=== PATIENT | male | born 1995 | race African-American/Black ===

== ENCOUNTER 2025-05-22 16:46 | Inpatient (IN) | payer OTHER ==
[2025-05-22 17:20] VITALS: BMI 20.5
[2025-05-22] MEDS ORDERED: NICOTINE POLACRILEX 2 MG GUM BUC PRN (18:06)
[2025-05-22] MEDS ORDERED: POLYETHYLENE GLYCOL (HEALTHYLAX) 3350 17 GM PACKET PO PRN (18:06)
[2025-05-22] MEDS ORDERED: BENZONATATE 200 MG CAPSULE PO PRN (18:06)
[2025-05-22] MEDS ORDERED: BENZOCAINE/MENTHOL (CHLORASEPTIC ) LOZENGE MM PRN (18:06)
[2025-05-22] MEDS ORDERED: LOPERAMIDE HCL 2 MG CAPSULE PO PRN (18:06)
[2025-05-22] MEDS ORDERED: NALOXONE (NARCAN) HCL 4 MG/0.1 ML SPRAY NS PRN (18:06)
[2025-05-22] MEDS ORDERED: MAG HYDROX/AL HYDROX/SIMETH 30 ML UNIT-DOSE CUP PO PRN (18:06)
[2025-05-22] MEDS ORDERED: NICOTINE POLACRILEX 2 MG LOZENGE BC PRN (18:06)
[2025-05-22] MEDS ORDERED: guaiFENesin 600 MG TABLET.ER (FP) PO PRN (18:06)
[2025-05-22] MEDS ORDERED: IBUPROFEN 600 MG TABLET (FP) PO ONE (19:36)
[2025-05-22] MEDS: IBUPROFEN 600 MG TABLET (FP) PO PRN (19:37)
[2025-05-22 21:12] LABS: URINE APPEARANCE CLEAR; URINE BILIRUBIN NEGATIVE (NEGATIVE); URINE COLOR YELLOW; URINE GLUCOSE (UA) NEGATIVE (NEGATIVE); URINE KETONE NEGATIVE (NEGATIVE); URINE LEUK ESTERASE NEGATIVE (NEGATIVE); URINE NITRITE NEGATIVE (NEGATIVE); URINE PROTEIN NEGATIVE (NEGATIVE); URINE UROBILINOGEN 0.2 mg/dL (0.2-1.0)
[2025-05-22] MEDS: MELATONIN 5 MG TABLETS PO SCH (22:23)
[2025-05-22] MEDS: THIAMINE 100 MG TABLET PO SCH (22:23)
[2025-05-22] MEDS: TUBERCULIN PPD 5 TU/0.1ML SYRINGE (IN PATIENT USE ONLY) ID ONE (22:23)
[2025-05-23] MEDS: ACETAMINOPHEN 325 MG TABLET (FP) PO PRN (08:28)
[2025-05-23 09:00] LABS: MCHC 32.7 g/dl (32.3-36.5); MEAN CELL VOLUME 91.5 fl (79.0-92.2); MEAN PLT VOLUME 9.6 fl (9.4-12.4); RDW 13.0 % (11.9-15.3)
[2025-05-23] MEDS: PRENATAL VITAMINS W/ FOLIC ACID TABLET (FP) PO SCH (09:46)
[2025-05-23 10:33] LABS: HCV DIAGNOSTIC IN-HOUSE W/RFLX NON-REACTIVE (NONREACTIVE)
[2025-05-23 10:41] LABS: GLUCOSE,RANDOM 105 mg/dL (74-106); TOT PROT 6.4 g/dl (6.4-8.2)
[2025-05-23 10:42] LABS: CO2 22 mmol/L (21-32)
[2025-05-23 10:44] LABS: ALK PHOS 60 U/L (40-150)
[2025-05-23 10:47] LABS: CREATININE 0.81 mg/dL (0.55-1.3); SGOT/AST 34 U/L (5-34); SGPT/ALT 21 U/L (0-55)
[2025-05-23] MEDS: MAGNESIUM HYDROX 2400MG/30ML ORAL SUSPENSION 30 ML CUP PO PRN (18:39)
[2025-05-23 20:18] LABS: SYPHILIS W/ RPR CONF NON-REACTIVE (NONREACTIVE)
[2025-05-23] MEDS: hydrOXYzine PAMOATE 25 MG CAPSULE (FP) PO PRN (21:25)
[2025-05-25] MEDS: IBUPROFEN 400 MG TABLET (FP) PO PRN (14:15)
[2025-05-27 07:36] VITALS: BP 131/87; PULSE 64; RESP 18; TEMP 97.6
== END 2025-05-27 11:58 | disposition left against medical advice (07) | DRG 770 ==
LOC: YASAS 16:46 → Y3NR 19:44 → Y5N 05-23 12:37
PROVIDERS: ADMIT Neuromusculoskeletal Medicine & OMM; ATTEND Psychiatry & Neurology Pain Medicine
PROC: HZ42ZZZ Group Counseling for Substance Abuse Treatment, Cognitive-Behavioral (ICD-10-PCS; principal; 2025-05-22)
DX: F10.20 Alcohol dependence, uncomplicated (principal); F14.20 Cocaine dependence, uncomplicated; F17.210 Nicotine dependence, cigarettes, uncomplicated; F19.24 Other psychoactive substance dependence with psychoactive substance-induced mood disorder; Z88.0 Allergy status to penicillin
CPT/HCPCS: 36415; 80053; 80307; 81003; 85027; 86780; 86803; 93005; 93010